=== PATIENT | male | born 1980 ===

== ENCOUNTER 2016-05-26 13:05 | Emergency (ER) | payer SELFPAY ==
--- NOTE | 2016-05-26 17:11 | Emergency Department Report ---
ED Abdominal Pain HPI - General Chief Complaint: Medical Clearance Stated Complaint: LOWER ABD PAIN Time Seen by Provider: 05/26/16 17:04 Source: patient, EMS Mode of arrival: Ambulatory Limitations: No Limitations - History of Present Illness Initial Comments: Patient presents with what he describes as a knot in his chest that is painful but only with palpation. He states he that this is only been present for 3-4 days. He does admit to constipation and states when he bears down that the pain increases. He also admits to heartburn frequently. He also admits to weakness, chills, congestion, shortness of breath. He states [facility] got [facility] last night and walking long distance from [facility] to [facility]. He states the congestion, shortness of breath began then. -: Gradual Location: epigastric Radiation: none Migration to: no migration Severity: mild Quality: aching, dull Consistency: intermittent Worsens With: other (palpation) Associated Symptoms: chills, constipation. denies: nausea, vomiting, diarrhea, fever, dysuria - Related Data Previous Rx's Medication Instructions Recorded Last Taken Type Omeprazole Magnesium [PriLOSEC Otc] 40 mg PO QDAY #30 tablet. 05/26/16 Unknown Rx Allergies Allergy/AdvReac Type Severity Reaction Status Date / Time fish derived Allergy Anaphylaxis Verified 05/26/16 13:47 ibuprofen [From Advil] Allergy Hives Verified 05/26/16 13:47 ED Review of Systems ROS: Stated complaint: LOWER ABD PAIN Other details as noted in HPI Constitutional: denies: chills, fever Eyes: denies: eye pain, eye discharge, vision change Respiratory: denies: cough, shortness of breath, wheezing Cardiovascular: denies: chest pain, palpitations Gastrointestinal: constipation. denies: abdominal pain, nausea, vomiting, diarrhea Genitourinary: denies: urgency, dysuria Musculoskeletal: other (he is describing pain on his xiphoid process and just below this area). denies: back pain, joint swelling, arthralgia Skin: denies: rash, lesions Neurological: denies: headache, weakness, paresthesias ED Past Medical Hx - Medications Home Medications: Home Medications Medication Instructions Recorded Confirmed Last Taken Type Omeprazole Magnesium [PriLOSEC Otc] 40 mg PO QDAY #30 tablet. 05/26/16 Unknown Rx ED Physical Exam - General Limitations: No Limitations General appearance: alert, in no apparent distress - Head Head exam: Present: atraumatic, normocephalic - Eye Eye exam: Present: normal appearance, PERRL - Respiratory Respiratory exam: Present: normal lung sounds bilaterally. Absent: respiratory distress - Cardiovascular Cardiovascular Exam: Present: regular rate, normal rhythm. Absent: systolic murmur, diastolic murmur, rubs, gallop - GI/Abdominal GI/Abdominal exam: Present: soft, normal bowel sounds. Absent: distended, tenderness, guarding, rebound, rigid, mass, hernia - Neurological Exam Neurological exam: Present: alert, oriented X3 - Psychiatric Psychiatric exam: Present: normal affect, normal mood - Skin Skin exam: Present: warm, dry, intact, normal color. Absent: rash - Other Other exam information: Tender to palpation to his xiphoid process ED Course Vital Signs 05/26/16 13:44 Temperature 98.1 F Pulse Rate 87 Respiratory 18 Rate Blood Pressure 124/71 O2 Sat by Pulse 100 Oximetry - Reevaluation(s) Reevaluation #1: 05/26/16 17:17 Patient presents with tenderness to xiphoid process, chills, congestion. I will order a CBC, CMP, lipase, UA and x-ray sternum. ED Medical Decision Making - Lab Data Result diagrams: 05/26/16 17:19 05/26/16 17:19 - Medical Decision Making Patient presents with pain at the xiphoid process, shortness of breath, weakness , chills, congestion. His PE is within normal. His UA and cmp are wnl. His cbc is slightly elevated with no obvious reasons. His breath sounds are clear bilateral throughout. I will give him Prilosec for reflux. And advised him to follow up on reevaluation of CBC to assure that it has come back to normal. He states he is going back to [place] within a few days to be with his family. - Differential Diagnosis xiphoid process fracture, GERD, asthma, pneumonia Critical Care Time: No Critical care attestation.: If time is entered above; I have spent that time in minutes in the direct care of this critically ill patient, excluding procedure time. ED Disposition Clinical Impression: GERD (gastroesophageal reflux disease) Disposition: DISCHARGED TO HOME OR SELFCARE Is pt being admited?: No Does the pt Need Aspirin: No Condition: Stable Instructions: Gastroesophageal Reflux Disease (ED) Additional Instructions: I'm advising you to follow up with an outpatient clinic to have your CBC reevaluated. Follow-up in the ED is pain increases, fever, failure of symptoms to resolve. Prescriptions: Omeprazole Magnesium [PriLOSEC Otc] 40 mg PO QDAY #30 tablet. Time of Disposition: 18:44
[2016-05-26 17:36] LABS: Basophils % (Auto) 0.2 % (0.0-1.8); Eosinophils % (Auto) 0.5 % (0.0-4.3); Hematocrit 42.6 % (35.5-45.6); Hemoglobin 14.5 gm/dl (11.8-15.2); Mean Corpuscular HGB Conc 34 % (32-34); Mean Corpuscular Hemoglobin 31 pg (28-32); Mean Corpuscular Volume 90 fl (84-94); Platelet Count 236 K/mm3 (140-440); Red Blood Count 4.72 M/mm3 (3.65-5.03); White Blood Count 15.8 K/mm3 (4.5-11.0)
[2016-05-26 17:59] LABS: Alanine Aminotransferase 13 units/L (7-56); Albumin 4.5 g/dL (3.9-5); Albumin/Globulin Ratio 1.7 %; Alkaline Phosphatase 82 units/L (35-129); BUN/Creatinine Ratio 16.66; Bilirubin,Total 0.5 mg/dL (0.1-1.2); Blood Urea Nitrogen 10 mg/dL (9-20); Calcium 9.1 mg/dL (8.4-10.2); Carbon Dioxide 26 mmol/L (22-30); Chloride 104.1 mmol/L (98-107); Glucose 101 mg/dL (75-100); Lipase 16 units/L (13-60); Potassium 3.7 mmol/L (3.6-5.0); Sodium 143 mmol/L (137-145); Total Protein 7.1 g/dL (6.3-8.2)
[2016-05-26 18:05] LABS: Anion Gap 17 mmol/L
[2016-05-26 18:12] LABS: Bilirubin,Urine NEG (Negative); Blood,Urine NEG (Negative); Ketones,Urine TR mg/dL (Negative); Leukocyte Esterase,Urine NEG (Negative); Mucus,Urine FEW /HPF; Nitrite,Urine NEG (Negative); Protein,Urine <15 mg/dL mg/dL (Negative); Urobilinogen,Urine < 2.0 mg/dL (<2.0)
--- NOTE | 2016-05-26 18:26 | XRay Report ---
FINAL REPORT PROCEDURE: XR STERNUM 2 TECHNIQUE: Three views of the sternum are obtained HISTORY: tenderness to xiphoid process COMPARISON: No prior studies are available for comparison. FINDINGS: No sternal abnormality is seen. Tip of the xiphoid process is not well-visualized. IMPRESSION: No sternal abnormality is seen. Tip of the xiphoid process is not well-visualized.
[2016-05-26 19:02] VITALS: BP 127/78
== END 2016-05-26 19:03 | disposition home or self-care (01) ==
LOC: ED 13:05
DX: K21.9 Gastro-esophageal reflux disease without esophagitis (principal); Z91.013 Allergy to seafood; Z88.6 Allergy status to analgesic agent
CPT/HCPCS: 36415; 71120; 80053; 81001; 83690; 85025; 99284